=== PATIENT | male | born 1950 | race Hispanic/Latino ===

== ENCOUNTER → 2022-06-28 | Outpatient (CLI) | payer OTHER | END | disposition home or self-care (01) | LOC: SLP 19:24 | PROVIDERS: ATTEND Family Medicine | DX: G47.33 Obstructive sleep apnea (adult) (pediatric) (principal); G47.19 Other hypersomnia | CPT/HCPCS: 95810 ==

== ENCOUNTER → 2022-07-12 | Outpatient (CLI) | payer OTHER | END | disposition home or self-care (01) | LOC: SLP 20:03 | PROVIDERS: ATTEND Family Medicine | DX: G47.33 Obstructive sleep apnea (adult) (pediatric) (principal); G47.19 Other hypersomnia | CPT/HCPCS: 95811 ==

== ENCOUNTER → 2023-02-10 | Outpatient (CLI) | payer OTHER | END | disposition home or self-care (01) | LOC: RAH 14:21 | PROVIDERS: ATTEND Urology | DX: R31.29 Other microscopic hematuria (principal); N28.1 Cyst of kidney, acquired | CPT/HCPCS: 76770 ==

== ENCOUNTER 2024-09-22 06:44 | Day surgery (SDC) | payer OTHER ==
--- NOTE | 2024-09-19 12:59 | EKG ---
[facility] Test Date: 2024-09-19 Test Time: 13:56:22 Pat Name: ROSEY CARTAGENA Department: [facility] Room: Gender: M Pediatric Oncologist: [id number] : 1950 Requested By: JOSE MATTHEWS Order Number: [id number] Reading MD: Avelina Bullock Measurements Intervals [place] Rate: 62 P: 29 [place]: 204 QRS: 24 QRSD: 88 T: 108 QT: 442 QTc: 448 Interpretive Statements Normal sinus rhythm Possible Inferior infarct , age undetermined ST & T wave abnormality, consider lateral ischemia No previous ECG available for comparison Electronically Signed On 09-20-2024 09:28:37 CLOTH LAYER by Avelina Bullock Please click the below link to view image of tracing.
[2024-09-19 13:31] VITALS: BP 178/95; PULSE 64; RESP 18; TEMP 98.1
[2024-09-19 13:31] LABS: BASOPHILS # (AUTO) 0.02 K/uL (0.00-0.20); BASOPHILS % (AUTO) 0.3 % (0.0-5.0); EOSINOPHILS # (AUTO) 0.27 K/uL (0.00-0.70); HEMATOCRIT 40.7 % (42-54); IMMATURE GRANULOCYTE ABSOLUTE 0.03 K/uL (0-1); LYMPHOCYTES # (AUTO) 1.4 K/uL (1.0-4.8); LYMPHOCYTES % (AUTO) 20.3 % (21.0-51.0); MEAN CORPUSCULAR HEMOGLOBIN 31.3 pg (27.0-33.0); MEAN CORPUSCULAR HGB CONC 32.7 g/dL (32.0-36.0); MEAN CORPUSCULAR VOLUME 95.8 fL (79-99); MONOCYTES # (AUTO) 0.6 K/uL (0.1-1.0); MONOCYTES % (AUTO) 8.2 % (3.0-13.0); NEUTROPHILS # (AUTO) 4.5 K/uL (1.8-7.7); NEUTROPHILS % (AUTO) 66.8 % (40.0-77.0); PLATELET COUNT (AUTO) 235 K/uL (130-400); RED BLOOD CELL COUNT(AUTO) 4.25 MIL/uL (4.50-6.20); RED CELL DISTRIBUTION WIDTH 13.3 % (11.0-15.5); WHITE BLOOD COUNT (AUTO) 6.7 K/uL (4.8-10.8)
[2024-09-19 13:33] LABS: CREATININE 1.6 mg/dL (0.5-1.3); POTASSIUM 4.3 mmol/L (3.5-5.1)
[2024-09-19 13:36] LABS: INR 0.95 (0.85-1.15); PROTHROMBIN TIME 10.3 SEC (9.6-11.6)
[2024-09-19 13:38] LABS: PARTIAL THROMBOPLASTIN TIME 27.2 SEC (26.3-35.5)
[2024-09-19 14:04] LABS: B-TYPE NATRIURETIC PEPTIDE 421 pg/mL (0-100)
--- NOTE | 2024-09-19 16:35 | HMCIMG ---
CHEST 1VW HISTORY: Preop COMPARISON: None FINDINGS: A frontal projection of the chest was obtained. No acute pulmonary infiltrates is seen. Poststernotomy changes are seen. The heart is enlarged. Degenerative changes of the thoracolumbar spine are present. Prominent interstitial markings are seen. Aortic calcifications are seen. IMPRESSION: 1. No acute pulmonary infiltrate is seen.
--- NOTE | 2024-09-21 10:41 | NUR ---
REPORT REPORTED BUN AND CREAT TO PORFIRIO GUTIERREZ NP. OK TO PROCEED
[2024-09-22] VITALS (11 sets, daily range): BP systolic 144–173; BP diastolic 68–93; PULSE 51–79; RESP 14–18; TEMP 97.3–97.9
[~2024-09-22] VITALS: Ht 167.6 cm; Wt 98.9 kg
[~2024-09-22 06:44] MED LIST: AMLO-257 PO; ATOR-2 PO; CLOP75TA32 PO; DAPA5TAB PO; FURO20TA4 PO; GLIP5TAB15 PO; ISOS60TA77 PO; LISI5TAB21 PO; MELO-108 PO; METF-446 PO; METO50 PO; NITR0.4T50 SL
[2024-09-22] MEDS: 0.9%NACL 1000ML 1,000 ML IV ONE (07:29)
[2024-09-22] MEDS ORDERED: IOHEXOL 350 MG/ML 100ML INFUS..BTL IV ONE (08:23)
[2024-09-22] MEDS ORDERED: HEParin-NS 1,000 UNIT/500 ML 1,000 ML IV ONE (08:23)
[2024-09-22] MEDS ORDERED: LIDOCAINE HCL 400MG/20ML VIAL ONE (08:23)
[2024-09-22] MEDS ORDERED: NITROGLYCERIN 50MG VIAL ONE (08:23)
[2024-09-22] MEDS ORDERED: MIDAZOLAM HCL 1 MG/ML 2ML VIAL ONE (08:46)
[2024-09-22] MEDS ORDERED: FENTanyl CITRate PF 50 MCG/1 ML 2ML VIAL ONE (08:46)
[2024-09-22] MEDS ORDERED: hydrALAZine 20MG/ML VIAL ONE (09:30)
[2024-09-22] MEDS ORDERED: GLUCAGON 1MG KIT 1 MG ML IM PRN (10:00)
[2024-09-22] MEDS ORDERED: DEXTROSE 50%-WATER 50 ML DISP.SYRIN IV PRN (10:00)
--- NOTE | 2024-09-22 10:16 | PRN ---
PROCEDURE NOTE Indications: 1. Chest pain, CCS 3 symptoms 2. CAD status post 4VCABG done in 2019 3. Abnormal Lexiscan stress test (small size, moderate intensity, predominantly fixed perfusion defect seen in the basal/mid inferior inferior septal liz) do ne on 12/01/2021 4. Frequent PVCs 5. Low normal left ventricle systolic function (LVEF 50-55% by echocardiogram done on 12/01/2021 6. CKD stage 3 7. DM2 Procedures: Left heart catheterization, coronary angiogram, graft assessment, femoral angiogram Introduction: After informed written consent was obtained, the patient was brought to the Catheterization Lab in the usual fasting state. Following sterile prep and drape, a time out was performed, then moderate sedation was administered, 1mg of Versed and 50mcg of Fentanyl, then 1% Lidocaine was infiltrated into the right femoral groin. Using a Modified Seldinger technique, a 6Fr Sheath was inserted into the right common femoral artery. While under fluoroscopic guidance, diagnostic coronary catheters were advanced over a wire into the central circulation where they were aspirated, flushed and placed to pressure monitoring, once the wire was removed. Coronary Angio: The coronary bypass grafts, left and right coronary arteries were engaged with appropriate catheters and angiography was performed under continuous pressure monitoring. Left Heart Catheterization: A JR4 catheter was inserted into the LV and the pressure was recorded, then the catheter was removed from the LV. Cardiac Findings: Right dominant system LM: Large caliber vessel with mild luminal irregularities. The vessel bifurcates into the LAD and LCX. LAD: Medium caliber vessel with 100% stenosis (SQL DATA ANALYST) in the proximal to mid LAD. Diagonal 1: Small caliber vessel with 90% stenosis in the proximal diagonal 1. LCx: Large caliber vessel with 30% stenosis in the ostial LCX, serial lesions each with 80% stenosis in the mid and distal LCX. OM1: Medium caliber vessel with 80% stenosis in the ostial OM1. OM2: Medium caliber vessel with mild luminal irregularities RCA: Medium caliber vessel with 100% stenosis in the proximal RCA. 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 RPDA: Small caliber vessel that fills via collateral blood flow from the distal LCX and LAD septal arteries RPLV: Small caliber vessel that fills via collateral blood flow from the distal LCX and LAD septal arteries YANG-LAD: Widely patent. The graft retrograde and antegrade fills the LAD down to the apex SVG-Dia% stenosis in the ostium of the vein graft SVG-OM1: Widely patent. The graft retrograde and antegrade fills the OM1. SVG-RCA: 100% stenosis in the ostium of the vein graft LVEDP: 28mmHg Medications given: Versed 1mg, Fentanyl 50mcg, hydralazine 20 mg, nitroglycerin 200mcg Coronary Intervention: None Complications: None Conscious Sedation Monitoring: Under my direct order and supervision, medication for moderate conscious sedation was administered by the nursing staff and the patients level of consciousness and physiological status was monitored by an independent trained nurse. Closure of Access Site: After the case completed the sheath was pulled and a 6Fr Angioseal was deployed in the right common femoral artery without complication. Conclusion: 1. Chest pain, CCS III symptoms 2. Severe 3V + branch vessel CAD s/p 4V CABG done in 2019, YANG-LAD is widely pa tent, SVG-OM1 is widely patent, SVG-Diag is 100% occluded at the ostium of the vein graft, SVG-RCA is 100% occluded at the ostium of the vein graft 3. 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 Elevated LVEDP, 28 mm of mercury 5. Abnormal Lexiscan stress test (small size, moderate intensity, predominantly fixed perfusion defect seen in the basal/mid inferior inferior septal liz) done on 12/01/2021 6. Frequent PVCs 7. Low normal left ventricle systolic function (LVEF 50-55% by echocardiogram done on 12/01/2021 8. CKD stage 3 9. DM2 Recommendation: 1. Continue goal-directed medical therapy 2. No IV fluids. The patient received 800 mL of fluids during the case 3. Groin precautions 4. 4 hours of bedrest 5. We will bring the patient back for a staged PCI of the LCX 6. We will discuss the patient's case with various last putter away to determine how to best treat the coronary fistula 7. Okay to DC once bedrest is complete and the right groin is soft, and free of bruising, bleeding, and/or hematoma formation. 8. Please have the patient follow up with Dr. Joiner in 1-2 weeks. JOSE JOINER MD Sep 22, 2024 10:16
== END 2024-09-22 14:00 | disposition home or self-care (01) ==
LOC: DAH 06:44
PROVIDERS: ATTEND Internal Medicine Cardiovascular Disease
DX: R07.9 Chest pain, unspecified (principal); I25.810 Atherosclerosis of coronary artery bypass graft(s) without angina pectoris; I25.10 Atherosclerotic heart disease of native coronary artery without angina pectoris; I49.3 Ventricular premature depolarization; I12.9 Hypertensive chronic kidney disease with stage 1 through stage 4 chronic kidney disease, or unspecified chronic kidney disease; E11.22 Type 2 diabetes mellitus with diabetic chronic kidney disease; N18.30 Chronic kidney disease, stage 3 unspecified; E78.5 Hyperlipidemia, unspecified; Z95.5 Presence of coronary angioplasty implant and graft; Z95.1 Presence of aortocoronary bypass graft; Z79.01 Long term (current) use of anticoagulants; Z79.82 Long term (current) use of aspirin; Z79.84 Long term (current) use of oral hypoglycemic drugs; Z79.899 Other long term (current) drug therapy
CPT/HCPCS: 80048; 83880; 85025; 85610; 85730; 36415; 71045; 93005; 93459; 82948 ×2; C1894 ×3; C1760; J3010; J3490 ×2; J7030; J0360; J2250; J1644; Q9967; A4215; A4222; A4221; A4663; A4216; A4606; Q9965 ×2; A4223 ×3; 99156; 99157

== ENCOUNTER → 2024-12-14 | Outpatient (CLI) | payer OTHER ==
[~2024-12-14] MED LIST changes: +ASPI-1443 PO; +FISH1CAP27 PO; -ISOS60TA77 PO; -MELO-108 PO; +MVIT PO; +RANO500T6 PO; +TOTAL BEETS PO; +UBID100T7 PO
[2024-12-14 16:27] LABS: CREATININE 1.7 mg/dL (0.5-1.3); POTASSIUM 4.9 mmol/L (3.5-5.1)
== END | disposition home or self-care (01) ==
LOC: LAB 13:18
PROVIDERS: ATTEND Internal Medicine Cardiovascular Disease
DX: I10 Essential (primary) hypertension (principal)
CPT/HCPCS: 36415; 80048

== ENCOUNTER → 2024-12-19 | Outpatient (CLI) | payer OTHER ==
[~2024-12-19] MED LIST changes: +IOHEXOL 350 MG/ML 100ML INFUS..BTL IV ONE; +metoPROLOL tartRATE 1 MG/ML 5ML VIAL IV ONE
--- NOTE | 2024-12-19 12:10 | HMCIMG ---
CT CARDIAC ANGIO W/CONT. CCTA REASON: CHEST PAIN COMPARISON: None TECHNIQUE: Images are obtained through the heart in the axial plane before and during bolus IV contrast infusion, 100 cc Omnipaque 350. 2-D and 3-D multiplanar reconstruction images were then performed. The injection had to be repeated once due to motion artifact on the first sequence, total contrast volume was 200 cc. FINDINGS: This dictation is for the noncardiac findings only. Cardiac and coronary artery findings are reported separately. Visualized portions of the lungs are clear. There is normal-appearing pulmonary interstitium. There is no hilar or mediastinal lymphadenopathy. Chest wall structures appear unremarkable. IMPRESSION: 1. Unremarkable noncardiac portions of CT cardiac angiography.
--- NOTE | 2024-12-28 18:37 | CARDIOLOGY ---
RAD REPORT: [facility] CT ANGIO RADIOLOGY REPORT: CORONARY CT ANGIOGRAPHY DATE: Dec 28, 2024 QUALITY: Excellent CLINICAL HISTORY AND INDICATION: [coronary artery bypass graft patency ] TECHNIQUE: After obtaining a preliminary heavy equipment technician image, contrast imaging performed on an Aquillon [id number] scanner. A dedicated, limited window, coronary imaging protocol was used, with single breath-hold, retrospective ECG gating, and automated arrhythmia rejection. 100 cc of low osmolar contrast agent: Omnipaque 350 was delivered via a 18-gauge IV catheter in the right antecubital fossa, using a power injector and followed by 60 cc of normal saline bolus as a chaser. Collimated images were reformatted at 0.5 mm intervals, and sent to an offline independent workstation for interpretation, using 3D anatomic reconstructions: Curved multiplanar reconstructions, maximum intensity projections, and multiplan ar imaging. 20 mg IV metoprolol was administered prior to scanning. 0.8 mg SL nitroglycerin was given. CORONARY ARTERY DESCRIPTIONS: The coronary arteries arise in normal position. Left main coronary artery: Normal caliber vessel that bifurcates into the LAD and LCx. No stenosis. Left anterior descending coronary artery: Normal caliber vessel and gives rise to diagonal and septal branches. PENSION AGENT proximal to mid LAD. Left circumflex coronary artery: Normal caliber, nondominant and gives rise to two large OM branches. There is a drug eluting stent in the mid to distal LCx. 90-95% stenosis in ostial OM1. Right coronary artery: Large, dominant vessel giving rise to the PL and PDA branches. Severe diffusely diseased RCA. Occluded SVG to RCA. There is a medium size caliber right coronary artery fistula that appears to drain into the pulmonary artery, however, due to abrupt rise in heart rate during scan destination of fistula is not well visualized. Recommend Cardiac MRI for better detailed visualization of the draining site and impact on blood flow dynamics within the heart. CORONARY ARTERY BYPASS GRAFT DESCRIPTIONS: Patent YANG to LAD. Patent SVG to OM 1. Thoracic Aorta: Normal diameter. Chiquis Thacker MD Cardiovascular Disease [facility] CHIQUIS THACKER MD Dec 28, 2024 18:37
== END | disposition home or self-care (01) ==
LOC: RAH 08:38
PROVIDERS: ATTEND Internal Medicine Cardiovascular Disease
DX: I10 Essential (primary) hypertension (principal); R07.9 Chest pain, unspecified; Z95.1 Presence of aortocoronary bypass graft
CPT/HCPCS: 75574; J3490 ×2; Q9967

== ENCOUNTER → 2024-12-26 | Outpatient (CLI) | payer OTHER ==
[~2024-12-26] MED LIST changes: -IOHEXOL 350 MG/ML 100ML INFUS..BTL IV ONE; +PRED10TA3 PO; -metoPROLOL tartRATE 1 MG/ML 5ML VIAL IV ONE
--- NOTE | 2025-01-02 01:44 | HMCSR ---
APPROVED REPORT EXAM: Two-dimensional and M-mode echocardiogram with Doppler and color Doppler. INDICATION ICD: I25.10 Ischemic cardiomyopathy 2D Dimensions RVDd4.4 cmLVEF(%)22.9 (>50%)LVED Vol(simp.)212.0 mL IVSd1.4 (0.7-1.1cm)FS(%)11 %LVES Vol(simp.)107.0 mL LVDd4.9 (3.8-5.6cm)LVOT diam2.3 (1.8-2.4cm)LVEF(%, simp.)50 % PWd1.1 (0.7-1.1cm)LA ESV INDEX (BP)37.62 mL/m2 IVSs1.7 cm LVDs4.4 (2.5-4.0cm) PWs1.2 cm M-Mode Dimensions EPSS1.3 cm LA (MM)4.1 (1.6-4.0cm) Ao Root(MM)4.0 (2.0-3.7cm) Aortic Valve AoV Vmax1.5 m/Vishal Peak GR8.8 mmHgLVOT Vmax0.8 m/s AoV VTI0.3 mAo Mean GR4.7 mmHgLVOT VTI0.17 m PALLAVI (VMAX)2.3 cm2Al P1/1U8746 msAVA (VTI) 2.3 cm2 Mitral Valve MV E Vmax72.5 cm/sDECEL Nuwq640 ms P 1/2 T68 ms MVA (PHT)3.2 cm2 TDI E/E' Ybijux50.8E/E' Quldxcg15.5 Medial E' Peak V3.33 cm/sLateral E' Peak V6.30 cm/s Pulmonary Valve PV Vmax0.8 m/s Tricuspid Valve TR Vmax2.7 m/sRAP (EST) 8 ueGmSHMK15.6 mmHg TR Peak GR31.6 mmHg Left Ventricle The left ventricle is normal in size. There is paradoxical septal wall motion noted. The basal/mid in ferior wall is thinned, scarred, and akinetic. The apical inferior wall is grossly normal in function . The anterior, anterior lateral and inferior lateral liz are grossly normal in function. Mild conc entric left ventricular hypertrophy. Left ventricle systolic function is mildly depressed, estimated LVEF 45%. Indeterminate diastolic dysfunction. Right Ventricle The right ventricle is dilated. Right ventricular systolic function is mildly depressed, TAPSE 14 mm. Atria The left atrium is mildly dilated, 41ml/m2. The right atrium is dilated. Aortic Valve Aortic valve is trileaflet. The leaflets are mildly thickened and calcified. Trace aortic regurgitati on. There is no aortic valvular stenosis. Mitral Valve The mitral valve is normal in structure. The leaflets are mildly thickened and calcified. Mild mitral regurgitation. There is no mitral valve stenosis. Tricuspid Valve The tricuspid valve is normal in structure. Mild tricuspid regurgitation. RVSP is 32 mmHg. Pulmonic Valve Pulmonic valve is not well visualized. Great Vessels The aortic root is normal in size. The IVC is normal in size and collapses >50% with inspiration. Pericardium There is no pericardial effusion. Other Information Quality : Adequate Conclusion The left atrium is mildly dilated, 41ml/m2. The right atrium is dilated. The right ventricle is dilated. Mild concentric left ventricular hypertrophy. There is paradoxical septal wall motion noted. The basal/mid inferior wall is thinned, scarred, and akinetic. The apical inferior wall is grossly normal in function. The anterior, anterior lateral an d inferior lateral liz are grossly normal in function. Left ventricle systolic function is mildly depressed, estimated LVEF 45%. Indeterminate diastolic dysfunction. Trace aortic regurgitation. Mild mitral regurgitation. Mild tricuspid regurgitation. PASP is 35 mmHg. There is no pericardial effusion.
== END | disposition home or self-care (01) ==
LOC: RAH 13:00
PROVIDERS: ATTEND Internal Medicine Cardiovascular Disease
DX: I08.3 Combined rheumatic disorders of mitral, aortic and tricuspid valves (principal); I25.10 Atherosclerotic heart disease of native coronary artery without angina pectoris
CPT/HCPCS: 93306

== ENCOUNTER 2025-01-05 16:28 | Emergency (ER) | payer OTHER ==
[~2025-01-05] VITALS: Ht 170.2 cm; Wt 90.7 kg
[~2025-01-05 16:28] MED LIST changes: -PRED10TA3 PO
--- NOTE | 2025-01-05 17:10 | ERN ---
General Chief Complaint: Hand Problem/Injury Stated Complaint: SWOLLEN HAND AND PAIN IN SHOULDER Time Seen by MD: 16:29 Source: patient History of Present Illness Initial Comments Patient is a 74-year-old gentleman coming in to be evaluated for right hand discomfort. Per patient he has been having repeated flare-up of gout. And believes he is having a flare-up gout after eating some seafood. Allergies: Coded Allergies: No Known Drug Allergies (Unverified Allergy, Unknown, 09/19/24) Home Meds Reported Medications Ubidecarenone (Coenzyme Q10) 100 Mg Tablet, 100 MG PO DAILY, TAB 11/03/24 Bonita-3 Fatty Acids/Fish Oil (Bonita 3 1,000 mg Softgel) 300 Mg-1,000 Mg Capsule, 1 EACH PO DAILY, CAP 11/03/24 [Total Beets] No Conflict Check, 1 CAP PO DAILY 11/03/24 Multivitamins,Therapeutic (Multivitamin Tablet) 400 Mcg Tab, 1 TAB PO DAILY, TAB 11/03/24 Aspirin (Aspirin EC) 81 Mg Tablet.dr, 81 MG PO DAILY, TAB 11/03/24 Ranolazine (Ranolazine ER) 500 Mg Tab.er.12h, 500 MG PO BID, TAB 11/03/24 Metformin HCl (Metformin HCl) 1,000 Mg Tablet, 500 MG PO BID for 30 Days, #60 TAB 0 Refills 09/19/24 Clopidogrel Bisulfate (Clopidogrel) 75 Mg Tablet, 1 TAB PO DAILY for 30 Days, #30 TAB 0 Refills 09/19/24 Amlodipine Besylate (Amlodipine Besylate) 5 Mg Tablet, 1 TAB PO DAILY for 30 Days, #30 TAB 0 Refills 09/19/24 Furosemide (Furosemide) 20 Mg Tablet, 1 TAB PO DAILY for 30 Days, #30 TAB 0 Refills 09/19/24 Metoprolol Tartrate (Lopressor 50Mg Tab) 50 Mg Tab, 50 MG PO BID, TAB 09/19/24 Glipizide (Glipizide) 5 Mg Tablet, 1 TAB PO DAILY for 30 Days, #30 TAB 0 Refills 09/19/24 Lisinopril (Lisinopril) 5 Mg Tablet, 1 TAB PO DAILY for 30 Days, #30 TAB 0 Refills 09/19/24 Atorvastatin Calcium (Atorvastatin Calcium) 80 Mg Tablet, 1 TAB PO HS for 30 Days, #30 TAB 0 Refills 09/19/24 Dapagliflozin Propanediol (Farxiga) 5 Mg Tablet, 1 TAB PO DAILY for 30 Days, #30 TAB 0 Refills 09/19/24 Nitroglycerin (Nitroglycerin) 0.4 Mg Tab.subl, 1 TAB SL AD PRN for CHEST PAIN, #25 TAB 0 Refills 1st sign of attack; may repeat every 5 mins; if pain persists after 3 in 15 min, medical attention is recommended 09/19/24 Past Medical History Past Medical History: Diabetes-Type II, High Cholesterol, Hypertension, Prostatitis Medical History Other: GOUT, BPH, Past Surgical History: CABG Surgical History Other: PROSTATECTOMY, HEART STENTS ROS Dictation CONSTITUTIONAL: No chills, no fever, no weakness, no diaphoresis, no malaise. HEAD/FACE: No signs of trauma. EENT: No eye pain, no blurred vision, no tearing, no double vision, no ear pain, no ear discharge, no nose pain, no nasal congestion, no throat pain, no throat swelling, no mouth pain. RESPIRATORY: No cough, no orthopnea, no SOB, no stridor, no wheezing. CARDIOVASCULAR: No chest pain, no edema, no palpitations, no syncope. GASTROINTESTINAL/ABDOMINAL: No abdominal pain, no constipation, no diarrhea, no nausea, no vomiting. GENITOURINARY: No abnormal discharge, no dysuria, no frequent urination, no he maturia. No complaints of pain in the genitals. MUSCULOSKELETAL: No back pain, no gout, no joint pain, no joint swelling, no m uscle pain, no muscle stiffness, no neck pain. INTEGUMENTARY: No change in color, no change in hair/nails, no dryness, no lesi on, no lumps, no rash. NEUROLOGICAL/PSYCH: No anxiety, not depressed, no emotional problem, no headache, no numbness, no pre-existing deficit, no history of seizures, no tremors, no weakness. HEMATOLOGIC/LYMPHATIC: Not anemic, no history of blood clots, no apparent bleeding, no bruising, glands not swollen. All Systems Negative, Except as Noted. Physical Exam Physical Exam Dictation VITAL SIGNS: Reviewed. GENERAL APPEARANCE: Alert, oriented x3, no acute distress, obese. HEAD AND FACE: Non-traumatic. EYES: PERRL, pink conjunctivas, eyelid no trauma, anterior chamber clear. EARS: Pinnas intact and no signs of trauma or erythema. Ear canals clear and no discharge. TMs no erythema. NOSE: No discharge, no bleeding. OROPHARYNX: Mouth normal, teeth no caries, tongue pink. Pharynx clear, no erythema. Tonsils no exudates, no abscesses noted. Mucous membrane moist. NECK: Supple, non-tender, no thyromegaly, no masses, no JVD, no bruits. BREAST: Deferred. CHEST: No tenderness, no crepitus, no paradoxical movement, no retractions. LUNGS: Clear, well-ventilated, symmetric, no rales, no wheezing, no rhonchi, no stridor, good breath sounds bilaterally. HEART: Regular rate, regular rhythm, no murmur, no gallops. VASCULAR: No peripheral edema. ABDOMEN: Soft, positive bowel sounds, nondistended, no guarding, nontender, no rebound, no masses no hepatomegaly, no splenomegaly, no Aguilar's sign, no hernias. RECTAL: Deferred. GENITAL: Deferred. NEUROLOGICAL: Normal speech, gross motor function intact, gross sensory function intact. MUSCULOSKELETAL: Neck nontender, full range of motion, back nontender, full range of motion. EXTREMITIES: Nontender, full range of motion. SKIN: Color pink, dry, no turgor, no rash, no lacerations, no abrasions, no contusions. LYMPHATICS: Deferred. Results Laboratory and Microbiology Labs Reviewed?: Yes MDM MDM: Differential diagnosis: Arthritis, gout, cellulitis, Patient is a 74-year-old male coming in to be evaluated for right hand redness and swelling. Patient states that he frequently gets gout inflammation and states this is a got inflammation. Patient received some and anti- inflammatories as well as some steroids will be discharged in stable condition I did advise him upon follow up with PCP in 1-2 days. I advised him that if there are any new changes which required emergent evaluation to seek help with his PCP or nearest ER immediately. Sling was placed. ED Course Orders Procedure Category Date Status Time Ketorolac PHA 01/05/25 In Process Tromethamine 30mg/Ml 17:00 Methylprednisolone PHA 01/05/25 In Process Succ 125mg (Solu-Medr 17:00 Current Medications Medications (Trade) Dose Ordered Sig/Kourtney Route PRN Reason Start Time Stop Time Status Last Admin Dose Admin Ketorolac Tromethamine (toRADol) 30 mg ONCE IM 01/05/25 17:00 01/05/25 22:00 01/05/25 17:49 Methylprednisolone Sodium Succinate (Solu-medROL 125MG) 60 mg ONCE IM 01/05/25 17:00 01/05/25 22:00 01/05/25 17:49 Vital Signs Date Time Temp Pulse Resp B/P (MAP) Pulse Ox O2 Delivery O2 Flow Rate FiO2 01/05/25 16:55 98.6 81 16 183/89 97 Room Air 0 DX & DISP Disposition: Discharge Departure Impression: Primary Impression: Gout attack Condition: Stable Scripts Prednisone (Prednisone) 10 Mg Tablet 1 TAB PO BID for 5 Days, #10 TAB 0 Refills Prov: SAL GARCIA MD 01/05/25 Additional Instructions: FOLLOW-UP WITH PRIMARY CARE PROVIDER IN 1 TO 2 DAYS. TAKE MEDICATIONS DIRECTED HERE IN THE EMERGENCY ROOM. OKAY TO CONTINUE HOME MEDICATIONS UNLESS OTHERWISE DISCUSSED DURING YOUR VISIT IN THE EMERGENCY ROOM TODAY. RETURN TO YOUR NEAREST EMERGENCY ROOM IF SYMPTOMS WORSEN OR IF THERE IS NO IMPROVEMENT. CALL 911 IF YOU NEED IMMEDIATE ASSISTANCE. TAKE TYLENOL [id number] N EEDED AND IF NO CONTRAINDICATIONS ARE PRESENT. INCREASE ORAL HYDRATION. A WOUND CULTURE OR URINE CULTURE WAS ORDERED HERE IN THE EMERGENCY ROOM DEPARTMENT PLEASE FOLLOW-UP WITH PRIMARY CARE PROVIDER AND ADVISE THEM TO GET REPEAT PORTS FROM OUR FACILITY. IF YOU HAD ANY PATITO WRAP/SPLINTS THAT WERE APPLIED HERE, PLEASE DO NOT REMOVE THEM UNTIL YOU SEE YOUR PRIMARY CARE OR SPECIALTY. Referrals: Referrals: ROSEY PETERS MD (PCP) Time of Disposition: 18:07 SAL GARCIA MD Jan 05, 2025 17:10
[2025-01-05] MEDS: Solu-medROL 125MG VIAL IM SCH (17:49)
[2025-01-05] MEDS: ketOROlac 30MG VIAL (30MG/ML) IM SCH (17:49)
[2025-01-05] MEDS ORDERED: PRED10TA3 PO (18:09)
[2025-01-05 18:11] VITALS: BP 175/85; PULSE 75; RESP 16; TEMP 98.3; O2SAT 98
== END 2025-01-05 18:21 | disposition home or self-care (01) ==
LOC: EDH 16:28
DX: M10.9 Gout, unspecified (principal); E11.9 Type 2 diabetes mellitus without complications; E78.00 Pure hypercholesterolemia, unspecified; I10 Essential (primary) hypertension; Z79.02 Long term (current) use of antithrombotics/antiplatelets; Z79.82 Long term (current) use of aspirin; Z79.84 Long term (current) use of oral hypoglycemic drugs; Z79.899 Other long term (current) drug therapy; Z90.79 Acquired absence of other genital organ(s); Z95.1 Presence of aortocoronary bypass graft; Z95.5 Presence of coronary angioplasty implant and graft
CPT/HCPCS: 99284; 96372 ×2; J1885; J2919